=== PATIENT | male | born 1965 | race Caucasian/White ===

== ENCOUNTER 2018-02-09 01:01 | Emergency (ER) | payer OTHER | END 2018-02-09 03:19 | disposition home or self-care (01) | LOC: FTE 01:01 | DX: J02.9 Acute pharyngitis, unspecified (principal) | CPT/HCPCS: 99283 ==

== ENCOUNTER 2018-03-06 20:40 | Emergency (ER) | payer OTHER ==
[2018-03-07] MEDS: LIDOCAINE/MYLANTA 40 ML BTL PO (01:54)
== END 2018-03-07 01:55 | disposition home or self-care (01) ==
LOC: FTE 03-07 01:55
DX: J02.9 Acute pharyngitis, unspecified (principal); I10 Essential (primary) hypertension
CPT/HCPCS: 70360; 99283-25

== ENCOUNTER 2018-05-24 06:39 | Day surgery (SDC) | payer OTHER ==
[2018-05-24] MEDS ORDERED: PROPOFOL 60 ML (08:28)
== END 2018-05-24 12:24 | disposition home or self-care (01) ==
LOC: GIL 06:39
DX: Z12.11 Encounter for screening for malignant neoplasm of colon (principal); K29.50 Unspecified chronic gastritis without bleeding; K64.8 Other hemorrhoids; I10 Essential (primary) hypertension
CPT/HCPCS: 43239; 84703; 88305; 88312